=== PATIENT | female | born 1995 | race Caucasian/White ===

== ENCOUNTER 2017-01-24 21:21 | Emergency (ER) | payer MEDICAID ==
[~2017-01-24] VITALS: Ht 157.5 cm; Wt 54.4 kg
[~2017-01-24 21:21] MED LIST: proair PO
[2017-01-24 22:40] VITALS: BP_SYST 105
--- NOTE | 2017-01-24 22:40 | NUR ---
Patient to ER bed 1 to gown for evaluation. Side rails up. Report given to Lawrence KIMBLE.
--- NOTE | 2017-01-24 22:45 | NUR ---
Pt states having sore throat since earlier today, pain is 8/10 with scratching sensation in throat. Pt states "i'm here in this ER often because of tonsillitis" Pt states +nausea, +vomiting, +diarrhea today, but denies stomach pain at this time. Pt states "I am about 9 weeks ". Pt denies any other complaints.
--- NOTE | 2017-01-24 23:18 | NUR ---
ER at bedside examining patient.
--- NOTE | 2017-01-24 23:30 | NUR ---
Pt stable, no signs of distress noted.
[2017-01-25 00:01] LABS: BASOPHILS % (AUTO) 0.1 % (0.0-2.0); EOSINOPHILS # (AUTO) 0.3 K/uL (0.0-0.4); HEMOGLOBIN 12.5 g/dL (12.0-16.0); LYMPHOCYTES # (AUTO) 2.2 K/uL (1.0-5.5); LYMPHOCYTES % (AUTO) 13.2 % (20.5-51.5); MEAN CORPUSCULAR HEMOGLOBIN 28 pg (27-31); MEAN CORPUSCULAR HGB CONC 34 % (32-36); MEAN CORPUSCULAR VOLUME 84 fL (79.0-98.0); MONOCYTES # (AUTO) 0.6 K/uL (0.0-1.0); MONOCYTES % (AUTO) 3.6 % (1.7-9.3); NEUTROPHILS # (AUTO) 13.3 K/uL (1.8-7.7); NEUTROPHILS % (AUTO) 81.1 % (40.0-70.0); PLATELET COUNT (AUTO) 275 K/uL (130-430); RED BLOOD CELL COUNT(AUTO) 4.41 MIL/uL (4.2-6.2); RED CELL DISTRIBUTION WIDTH 12.7 % (9.0-15.0); WHITE BLOOD COUNT (AUTO) 16.4 K/uL (4.5-11.0)
[2017-01-25 00:14] LABS: BILIRUBIN,URINE NEGATIVE (NEGATIVE); BLOOD, URINE NEGATIVE (NEGATIVE); CLARITY/URINE HAZY (CLEAR); COLOR,URINE AMBER (YELLOW); GLUCOSE,URINE NEGATIVE (NEGATIVE); KETONES,URINE NEGATIVE (NEGATIVE); LEUKOCYTE ESTERASE ,URINE TRACE (NEGATIVE); NITRITE, URINE NEGATIVE (NEGATIVE); PROTEIN URINE TRACE (NEGATIVE)
[2017-01-25 00:23] LABS: CALCIUM 9.4 mg/dL (8.4-11.0); CREATININE 0.65 mg/dL (0.55-1.30); POTASSIUM 3.8 mmol/L (3.5-5.1)
[2017-01-25 00:30] VITALS: BP_SYST 110
--- NOTE | 2017-01-25 00:30 | NUR ---
Patient given written and verbal discharge instructions and verbalizes understanding. ER MD discussed with patient the results and treatment provided. Patient in stable condition. ID arm band removed. Rx of Amoxicillin given. Patient educated on pain management and to follow up with PMD. Pain Scale 0/10. Opportunity for questions provided and answered.
[2017-01-25 00:34] LABS: ALBUMIN 3.6 g/dL (3.4-4.8); TOTAL BILIRUBIN 0.3 mg/dL (0.0-1.0); TOTAL PROTEIN, SERUM 7.1 g/dL (6.4-8.3)
[2017-01-25 00:36] LABS: BACTERIA,URINE MODERATE /HPF (None Seen); RBC,URINE NONE SEEN /HPF (0-3)
[2017-01-25 00:37] LABS: MUCUS,URINE 1+ /LPF (None Seen)
== END 2017-01-25 00:30 | disposition home or self-care (01) ==
LOC: SED 21:21
DX: O26.891 Other specified pregnancy related conditions, first trimester (principal); J03.90 Acute tonsillitis, unspecified; Z3A.09 9 weeks gestation of pregnancy
CPT/HCPCS: 36415; 76801; 80053; 81000-TC; 81025; 84702-TC; 85025; 86901; 87086; 99285

== ENCOUNTER 2018-08-31 14:36 | Emergency (ER) | payer MEDICAID ==
[~2018-08-31] VITALS: Ht 160 cm; Wt 63.5 kg
[2018-08-31 14:56] VITALS: BP_SYST 111
[2018-08-31 15:44] LABS: STREPTOCOCCUS A SCREEN (RAPID) NEGATIVE (NEGATIVE)
[2018-08-31 15:58] LABS: INFLUENZA A&B ANTIGEN SCREEN NEGATIVE FOR A & B (NEGATIVE)
[2018-08-31] MEDS ORDERED: KETOROLAC TROMETHAMINE 60 MG/2 ML VIAL IM ONE (16:00)
[2018-08-31 17:02] VITALS: BP_SYST 109
== END 2018-08-31 17:02 | disposition home or self-care (01) ==
LOC: SED 14:36
DX: J02.8 Acute pharyngitis due to other specified organisms (principal); B97.89 Other viral agents as the cause of diseases classified elsewhere; J45.909 Unspecified asthma, uncomplicated
CPT/HCPCS: 36415; 81025; 86403; 86710; 87081; 96372; 99283; J1885

== ENCOUNTER 2021-07-18 18:58 | Emergency (ER) | payer MEDICAID, SELFPAY ==
[2021-07-18 19:10] VITALS: BP_SYST 110
== END 2021-07-18 21:35 | disposition home or self-care (01) ==
LOC: SED 18:58
DX: Z20.822 Contact with and (suspected) exposure to COVID-19 (principal); J45.909 Unspecified asthma, uncomplicated
CPT/HCPCS: 36415; 99283

== ENCOUNTER 2022-07-23 16:06 | Emergency (ER) | payer MEDICAID ==
[~2022-07-23] VITALS: Ht 160 cm; Wt 63.5 kg
[~2022-07-23 16:06] MED LIST changes: +CEPH-548 PO; +ONDA-8 TL
--- NOTE | 2022-07-23 16:10 | NUR ---
Patient triaged and placed in waiting room. VSS and patient appears in no acute distress at this time. Accompanied by self , awaiting available bed, and MD notified of need for MSE.
[2022-07-23 16:37] VITALS: BP_SYST 129
--- NOTE | 2022-07-23 17:30 | NUR ---
Dr Mendenhall evaluating patient at bedside
--- NOTE | 2022-07-23 19:00 | NUR ---
Pt brought by self, A&Ox4, pt presents to ER with redness/itching on bilateral eyes, pt states she got a positive test today, skin pink and warm, cap refill <3, VSS, will cont to monitor.
[2022-07-23] MEDS ORDERED: ERYEYE EACH EYE (21:07)
[2022-07-23 21:31] VITALS: BP_SYST 129
--- NOTE | 2022-07-23 21:32 | NUR ---
Patient given written and verbal discharge instructions and verbalizes understanding. ER MD discussed with patient the results and treatment provided. Patient in stable condition. ID arm band removed. . Rx of Erythromycin given. Patient educated on pain management and to follow up with PMD. Pain Scale 2/10. Opportunity for questions provided and answered. Medication side effect fact sheet provided.
== END 2022-07-23 21:31 | disposition home or self-care (01) ==
LOC: SED 16:06
DX: O26.891 Other specified pregnancy related conditions, first trimester (principal); Z3A.01 Less than 8 weeks gestation of pregnancy; Z79.899 Other long term (current) drug therapy
CPT/HCPCS: 36415; 81025; 84702; 99283

== ENCOUNTER 2024-02-23 08:51 | Emergency (ER) | payer MEDICAID ==
[~2024-02-23] VITALS: Ht 160 cm; Wt 68.0 kg
[~2024-02-23 08:51] MED LIST changes: +ERYEYE EACH EYE
[2024-02-23 09:10] VITALS: BP_SYST 112; PULSE 96; RESP 16; TEMP 97.8; O2SAT 97
[2024-02-23] MEDS ORDERED: PHEN-726 PO (09:10)
[2024-02-23] MEDS ORDERED: NITR-85 PO (09:10)
[2024-02-23 09:23] VITALS: BP_SYST 112; PULSE 96; RESP 16; TEMP 97.8; O2SAT 97
== END 2024-02-23 09:22 | disposition home or self-care (01) ==
LOC: SED 08:51
DX: N39.0 Urinary tract infection, site not specified (principal); J45.909 Unspecified asthma, uncomplicated; Z79.899 Other long term (current) drug therapy; Z79.2 Long term (current) use of antibiotics
CPT/HCPCS: 99283